=== PATIENT | female | born 1990 | race Caucasian/White ===

== ENCOUNTER 2020-09-08 02:05 | Emergency (ER) | payer SELFPAY ==
[~2020-09-08] VITALS: Ht 162.6 cm; Wt 99.5 kg
[2020-09-08 02:06] VITALS: BP 136/79
[2020-09-08] MEDS ORDERED: AMOXICILLIN 500 MG CAPSULE ONE (02:46)
[2020-09-08] MEDS ORDERED: IBUPROFEN 800 MG TABLET ONE (02:46)
--- NOTE | 2020-09-08 02:53 | NUR ---
DC EDUCATION PROVIDED BY ABHISHEK RN. PT AMBULATED STEADILY TO DC
[2020-09-08] MEDS ORDERED: IBUPROFEN 800 MG TABLET PO ONE (03:00)
[2020-09-08] MEDS ORDERED: AMOXICILLIN 500 MG CAPSULE PO ONE (03:00)
== END 2020-09-08 02:57 | disposition home or self-care (01) ==
LOC: ED 02:15
DX: K04.7 Periapical abscess without sinus (principal); K02.9 Dental caries, unspecified
CPT/HCPCS: 99283